=== PATIENT | female | born 2000 | race Caucasian/White ===

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

== ENCOUNTER 2024-08-10 22:09 | Observation (INO) ==
[2024-08-10 22:44] VITALS: RESP 18
[2024-08-10] MEDS: LACTATED RINGER'S 1,000 ML IV ONE (23:19)
[2024-08-11] MEDS: LACTATED RINGER'S 1,000 ML IV SCH (00:19)
[2024-08-11] MEDS ORDERED: MoRPHine SULFATE 2 MG/ML CARP IV STA (02:17)
[2024-08-11] MEDS ORDERED: ONDANSETRON INJ 2 MG/ML 2 ML VIAL IV PRN (02:22)
[2024-08-11 07:01] VITALS: BP 113/60; PULSE 68
[2024-08-11 07:12] VITALS: TEMP 98.1
--- NOTE | 2024-08-11 07:13 | History & Physical Report ---
Date of Service August 11, 2024 Assessment & Plan (1) contractions: Plan: 36+ weeks with known breech presentation she presented last night with contractions that were regular every 4 to 6 minutes apart she described these as 7 out of 10 although she did appear comfortable per nursing. Her cervix was 1 cm and thick because of her distance from the hospital over 45 minutes and contractions with breech she was rechecked in 2 hours stated she was more uncomfortable however cervix was unchanged. Because of her distance she was kept overnight again checked in the morning after fluid hydration through IV and oral her contractions have essentially s topped cervix is long and thick perhaps fingertip quite posterior reassurance is provided I will discharge her home Total [id number] time 55 minutes Admission and Anticipated Discharge Date Admission Date: August 11, 2024 History of Present Illness Primary Care Provider: NO PCP Visit FLYNN Calculator Estimated Delivery Date Method Current WG Current Estimate 09/03/24 Ultrasound #1 36w 2d LMP: 10/14/23 : 2 Full term: 0 Premature: 0 Total Number of Induced Abortions: 0 Total Number of Spontaneous Abortions: 1 Ectopics: 0 Multiple births: 0 Number of Living Children: 0 and Delivery Plans Unable to view heat on f/u Anatomy * [place] [facility] [place] Allergies Allergy/AdvReac Type Severity Reaction Status Date / Time doxycycline Allergy Intermediate Vomiting Verified 08/08/24 11:10 Home Medications Medication Instructions Recorded Confirmed Type buspirone 30 mg tablet 30 mg PO DAILY 05/05/24 08/11/24 History [id number]-[id number]-FA 1 tab PO DAILY 05/05/24 08/11/24 History [ Plus] sertraline 50 mg tablet (Zoloft) 50 mg PO DAILY 05/05/24 08/11/24 History hydrocortisone 2.5 % topical cream 1 applic MS DAILY PRN hemorrhoids 07/25/24 08/11/24 Rx with perineal applicator #30 grams (Anusol-HC) Patient History Medical History Chlamydia Raynauds disease Anxiety Urinary symptom or sign Nexplanon insertion Amenorrhea Abnormal uterine bleeding (AUB) No pertinent past medical history Surgical History H/O excision of ganglion cyst History of cosmetic surgery History of facial surgery S/P wisdom tooth extraction Family History (Updated 05/05/24 @ 13:59 by Mary Kay Buchanan RN) Grandmother (Maternal) Arthritis Sister Depression Father Diabetes Mother Gestational diabetes Aunt Graves disease Grandmother (Paternal) Huntingtons chorea Grandmother Hypertension Denies family history of Ovarian cancer Prostate cancer Breast cancer Colorectal cancer Uterine cancer Social History Smoking Status: Never smoker Do You Dip or Chew Tobacco: No; Hx Alcohol Use: No Hx Substance Use: No Preferred Language: Khmer marital status: marital status details: Musa Decker (24) [phone] Current Living Situation: Spouse Current Living Situation Comment: Lives with , 2 dogs current occupational status: employed 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 How many Children do You have: 0 Physical Exam Constitutional: WD/WN, vitals as above well developed and well nourished Respiratory: normal respiratory effort, lungs clear to auscultation normal respiratory effort Cardiovascular: RRR, no murmur, no edema Gastrointestinal (Abdomen): normal bowel sounds, soft, nontender, no hepatosplenomegaly Results & Data Vital Signs (Past 12 Hours) Vital Signs Temp Pulse Resp BP 08/11/24 07:00 68 113/60 08/11/24 02:38 98.4 F 59 L 18 106/55 L 08/10/24 22:33 98.6 F 18 08/10/24 22:32 87 129/81 Coding Level of Care Code 52227 INT INP/OBS CARE 2/55MIN Diagnoses contractions O47.00
--- NOTE | 2024-08-13 16:09 | Discharge Summary ---
Date of Service August 13, 2024 Admission HPI Per Admitting Provider Visit FLYNN Calculator Estimated Delivery Date Method Current WG Current Estimate 09/03/24 Ultrasound #1 36w 2d LMP: 10/14/23 : 2 Full term: 0 Premature: 0 Total Number of Induced Abortions: 0 Total Number of Spontaneous Abortions: 1 Ectopics: 0 Multiple births: 0 Number of Living Children: 0 and Delivery Plans Unable to view heat on f/u Anatomy * Echo (06/20/24 @ [facility] [place])----normal Admission Exam (Per Admitting) Constitutional WD/WN, vitals as above well developed and well nourished Respiratory normal respiratory effort, lungs clear to auscultation normal respiratory effort Cardiovascular RRR, no murmur, no edema Gastrointestinal (Abdomen) normal bowel sounds, soft, nontender, no hepatosplenomegaly Hospital Course (1) contractions: 36+ weeks with known breech presentation she presented last night with contractions that were regular every 4 to 6 minutes apart she described these as 7 out of 10 although she did appear comfortable per nursing. Her cervix was 1 cm and thick because of her distance from the hospital over 45 minutes and contractions with breech she was rechecked in 2 hours stated she was more uncomfortable however cervix was unchanged. Because of her distance she was kept overnight again checked in the morning after fluid hydration through IV and oral her contractions have essentially stopped cervix is long and thick perhaps fingertip quite posterior reassurance is provided I will discharge her home Total [id number] time 55 minutes Coding Level of Care Code None Diagnoses contractions O47.00
== END 2024-08-11 07:47 | disposition home or self-care (01) ==
LOC: OPB 22:09 → 4S1 22:09

== ENCOUNTER 2024-08-19 02:35 | Inpatient (IN) ==
[2024-08-19] MEDS: LACTATED RINGER'S 1,000 ML IV SCH ×2 (03:25→14:06)
[2024-08-19 03:42] LABS: Hematocrit (blood only) 34.8 % (37.0-47.0); Hemoglobin 11.7 g/dl (12.0-16.0); Mean Corpuscular Hemoglobin 27.9 pg (25.0-34.0); Mean Corpuscular Hgb Conc 33.6 g/dL (32.0-36.0); Mean Corpuscular Volume 82.9 fL (80.0-100.0); Mean Platelet Volume 12.4 fL (9.4-12.4); Platelet Count 178 K/uL (130-400); RDW Coefficient of Variation 13.2 % (11.5-14.5); White Blood Count 8.77 K/ul (4.8-10.8)
[2024-08-19] MEDS ORDERED: Nursing to Pharmacy Communication SCH (03:45)
[2024-08-19] MEDS: ACETAMINOPHEN 500 MG TAB PO STA (03:50)
[2024-08-19] MEDS: CITRIC ACID/SODIUM CITRATE 15 ML UDC PO SCH ×2 (03:52→03:54)
[2024-08-19] MEDS: ceFAZolin 3000MG 3,000 MG/72.5 ML BAG IV SCH (03:55)
--- NOTE | 2024-08-19 04:01 | History & Physical Report ---
Date of Service August 19, 2024 Assessment & Plan (1) Breech presentation: Plan: Intrauterine at 37-6/7 weeks with grossly ruptured membranes and breech presentation. We will proceed with primary low-transverse section. Procedure and its risks were reviewed with the patient and her and all her questions have been answered to their satisfaction. Please see the orders for further direction. Admission and Anticipated Discharge Date Admission Date: August 19, 2024 History of Present Illness Primary Care Provider: NO PCP Patient is a 23-year-old 1 P0 female EDC 09/03/2024 who presents at 37- 6/7 weeks with grossly ruptured membranes for clear fluid. She has had some contractions but they are still mild. is complicated by persistent breech presentation and anxiety. GBS positive. Allergies Allergy/AdvReac Type Severity Reaction Status Date / Time doxycycline Allergy Intermediate Vomiting Verified 08/14/24 11:33 Home Medications Medication Instructions Recorded Confirmed Type buspirone 30 mg tablet 30 mg PO BID 05/05/24 08/19/24 History sertraline 50 mg tablet (Zoloft) 50 mg PO QAM 05/05/24 08/19/24 History vits no.124-ferrous fum 1 tab PO DAILY 08/18/24 08/19/24 History 27 mg iron-folic acid 800 mcg tablet ( Vitamin) Patient History Medical History Anxiety Hx of gastroesophageal reflux (GERD) mainly with Raynauds disease b/l feet Surgical History H/O excision of ganglion cyst left wrist History of cosmetic surgery 2002 and 2011 History of facial surgery facial reconstruction and scar revision 2010 Nausea after anesthesia after facial surgery, age 11 S/P wisdom tooth extraction 2016 Family History Grandmother (Maternal) Arthritis Sister Depression Father Diabetes Mother Gestational diabetes Aunt Graves disease Grandmother (Paternal) Huntingtons chorea Grandmother Hypertension Denies family history of Ovarian cancer Prostate cancer Breast cancer Colorectal cancer Uterine cancer Social History (Updated 08/18/24 @ 14:50 by Karely Soler RN) Smoking Status: Never smoker Second Hand Exposure: No; Hx Alcohol Use: No Hx Substance Use: No Preferred Language: Ugandan Communication Ability: Effective Electrical Continuity Inspector Required: No Beliefs That Will Affect Care: None marital status: marital status details: Musa Decker (24) [phone] Current Living Situation: Family Current Living Situation Comment: Lives at home with and 2 dogs. current occupational status: employed current occupation: Home Health Nurse How many Children do You have: 0 Feels Safe at Home: Yes Safety Concerns: Feels Safe At This Time Assistive Devices: None Review of Systems All systems reviewed & are unremarkable except as noted in HPI & below Physical Exam Constitutional: WD/WN, vitals as above Psychiatric: A+Ox3, euthymic affect Genitourinary: OB Exam Abdomen: + breech (confirmed by ultrasound), + estimated weight (7-8 pounds) and + irregular contractions Manual OB Exam: + amniotic fluid (grossly ruptured) clear and nitrazine positive OB Exam Monitor Tracing: + external FHT monitor used, + external uterine monitor used, + category I and + normal FHT variability Results & Data Vital Signs (Past 12 Hours) Vital Signs Temp Pulse Resp BP 08/19/24 03:04 86 135/87 08/19/24 02:48 97.7 F 18 Coding Level of Care Code 66235 INT INP/OBS CARE 1/40MIN Diagnoses Breech presentation, single or unspecified fetus O32.1XX0 Fetus number: single or unspecified fetus (1) Breech presentation Fetus number: single or unspecified fetus Qualified Code(s): O32.1XX0 - Maternal care for breech presentation, not applicable or unspecified
[2024-08-19] MEDS: AZITHROMYCIN 500 MG/255 ML BAG IV SCH (04:16)
[2024-08-19] MEDS ORDERED: ONDANSETRON INJ 2 MG/ML 2 ML VIAL ONE (04:26)
[2024-08-19] MEDS ORDERED: PHENYLEPHRINE HCL 10 MG/ML VIAL ONE (04:26)
[2024-08-19] MEDS ORDERED: MoRPHine SULFATE PF 1 MG/ML 10 ML AMP/VIAL ONE (04:26)
[2024-08-19] MEDS ORDERED: OXYTOCIN 10 UNITS/ML VIAL ONE (04:44)
[2024-08-19] MEDS ORDERED: PHENYLEPHRINE 100MCG/ML 5ML SYR ONE (05:04)
[2024-08-19] MEDS ORDERED: LIDOCAINE 2% MPF LOCAL 5 ML VIAL ONE (05:04)
--- NOTE | 2024-08-19 05:42 | Post Operative Brief Note ---
Immediate Post Op Note Date of Surgery August 19, 2024 Pre & Post Diagnosis Operation Date: 08/19/24 03:10 Pre-Op Diagnosis: breech presentation; SROM Post-Op Diagnosis: same as pre-op I identified the patient and participated in the time-out.: Yes Procedure Operation Date: 08/19/24 03:10 Actual Procedures p Section in LD for the of a live male child @ 0457 - Xochitl Guerrero MD, FACOG Surgeon Xochitl Guerrero MD, FACOG Sand[employer] Pedd[employer] Kelin Anand RN Quantitative Blood Loss (QBL) 380 Findings Consistent with Post-Op Diagnosis gravid uterus consistent with term - bilateral ovaries and tubes are normal Specimens Specimen Description: 1. Placenta-Hold 2. Cord Blood Drains Brooks Catheter (managed by anesthesia during surgery ) Anesthesia Type Spinal Complications none Disposition Accompanied Patient To Recovery: Yes Disposition: L&D
[2024-08-19] MEDS ORDERED: CALCIUM CARBONATE 500 MG CHEWABLE TAB PO PRN (05:50)
[2024-08-19] MEDS ORDERED: diphenhydrAMINE Capsule 25 MG CAP PO PRN ×2 (05:50→23:53)
[2024-08-19] MEDS ORDERED: BENZOCAINE 20% SPRY 85 APPLN/85 GM CAN EXT PRN (05:50)
[2024-08-19] MEDS ORDERED: diphenhydrAMINE 50 MG/ML VIAL IV PRN ×3 (05:50→23:53)
[2024-08-19] MEDS ORDERED: SENNA 8.6 MG TAB PO PRN (05:50)
[2024-08-19] MEDS ORDERED: MAGNESIUM HYDROXIDE SUSP 30 ML UDC PO PRN (05:50)
[2024-08-19] MEDS ORDERED: ONDANSETRON INJ 2 MG/ML 2 ML VIAL IV PRN ×2 (05:50→05:53)
[2024-08-19] MEDS ORDERED: PROMETHAZINE 12.5 MG/50.5 ML BAG IV PRN (05:50)
[2024-08-19] MEDS ORDERED: HYDROmorphone INJ 0.5 MG/0.5 ML SYR IV PRN ×4 (05:50→23:53)
[2024-08-19] MEDS ORDERED: HYDROCORTISONE ACETATE 25 MG SUPP PR PRN (05:50)
[2024-08-19] MEDS ORDERED: oxyCODONE HCL IR 5 MG TAB (IMMEDIATE RELEASE) PO PRN ×5 (05:50→23:53)
[2024-08-19] MEDS: OXYTOCIN 20 UNITS/LR 1,002 ML IV SCH (05:51)
[2024-08-19] MEDS ORDERED: PROMETHAZINE 6.25 MG/50.25 ML BAG IV PRN ×2 (05:53→23:53)
[2024-08-19] MEDS ORDERED: NALOXONE HCL 0.4 MG/1 ML VIAL/CARP IV PRN (05:53)
[2024-08-19] MEDS ORDERED: MEPERIDINE HCL 25 MG/ML CARP/VIAL IV PRN (05:53)
[2024-08-19] MEDS ORDERED: NALBUPHINE HCL INJ 10 MG/ML AMP IV PRN (05:53)
[2024-08-19] MEDS ORDERED: MoRPHine SULFATE PF 1 MG/ML 10 ML AMP/VIAL INT SPINAL ONE (05:53)
[2024-08-19] MEDS ORDERED: MoRPHine SULFATE 2 MG/ML CARP IV PRN ×2 (05:53→23:53)
[2024-08-19] MEDS ORDERED: NALOXONE HCL 1 MG in SODIUM CHLORIDE 0.9% 1,000 ML IV PRN (05:53)
[2024-08-19] MEDS ORDERED: ePHEDrine sulfate 50 MG/ML AMP IV PRN (05:53)
--- NOTE | 2024-08-19 05:58 | Operative Report ---
Post Operative Report Pre & Post Diagnosis Operation Date: 08/19/24 03:10 Pre-Op Diagnosis: breech presentation; SROM Post-Op Diagnosis: same as pre-op I identified the patient and participated in the time-out.: Yes Procedure Operation Date: 08/19/24 03:10 Actual Procedures p Section in LD for the of a live male child @ 0457 - Xochitl Guerrero MD, FACOG Surgeon Xochitl Guerrero MD, FACOG [employer] Uzma Anand RN Quantitative Blood Loss (QBL) 380 Findings Consistent with Post-Op Diagnosis Gravid uterus consistent with term in size bilateral ovaries and fallopian tubes grossly. normal in the double footling breech presentation. Specimens Placenta to hold Drains Brooks catheter to straight drainage clear urine at the end of the case. Anesthesia Type Spinal Complications none Disposition Accompanied Patient To Recovery: Yes Disposition: L&D Indications Intrauterine at 37-6/7 weeks with spontaneous rupture membranes for clear fluid and breech presentation. Description of Procedure At the patient received adequate subarachnoid block she was prepped and draped in usual sterile fashion. A low transverse skin incision was made with a scalpel carried to the fascia with the same scalpel. The fascia incision was then extended with Moreno scissors. The edges of the fascia were then grasped with Niles clamps and the underlying rectus muscle bluntly sharply dissected off of the overlying fascia. The rectus muscle was then divided on the midline and the underlying peritoneum elevated and entered sharply. The bladder was then taken down with Metzenbaum scissors and placed behind the bladder blade. Low transverse skin incision was made in the uterus with the scalpel the incision was then extended transversely by stretching the incision in a cephalad and caudad direction. The was delivered from the double footling breech presentation with moderate fundal pressure the shoulders were then delivered in the head followed shortly after. The was vigorous crying moving all 4 limbs upon arrival at the baby bed. Dr. Francis and the nursery team were in attendance at the delivery. After cord blood was obtained, the placenta was expressed intact with a three-vessel cord. Some retained membranes were removed from the lower uterine segment. the uterine cavity was explored and found to be free of any other retained tissue or membranes. The uterus was then closed in 2 layers in a running locking imbricating fashion with 0 Monocryl. Hemostasis noted to be excellent on the uterine incision after examining the ovaries and tubes, the posterior cul-de-sac was suctioned for small amount of blood. The uterus vision was examined once more and continue to have excellent hemostasis. Uterus was placed back inside the abdominal cavity the gutters were explored and found to be free of any clot or fluid. Some bleeding along the bladder flap was secured with the Bovie. Bleeding site on the left rectus muscle was secured with a suture of 0 Monocryl. The fascia was then closed in a running fashion with 0 Vicryl after irrigating the subcutaneous layer Lluvia's fascia was reapproximated in a running fashion with 3-0 plain catgut. Skin edges were approximated using a subcuticular stitch of 4-0 Vicryl. Urine was clear at the end of the case mother and were doing well upon arrival back in labor and delivery. I attest to the content of the Intraoperative Record and any orders documented therein. Any exceptions are noted below.
[2024-08-19] MEDS ORDERED: NO NARCOTICS OR SEDATIVES SCH (06:00)
[2024-08-19] MEDS ORDERED: ceFAZolin 3000MG 3,000 MG/72.5 ML BAG IV SCH (06:00)
[2024-08-19] MEDS ORDERED: ACETAMINOPHEN 500 MG TAB PO SCH (06:00)
[2024-08-19] MEDS ORDERED: LACTATED RINGER'S 1,000 ML IV SCH (06:00)
[2024-08-19] MEDS ORDERED: DC INTRASPINAL MORPHINE SCH (06:00)
[2024-08-19] MEDS ORDERED: AZITHROMYCIN 500 MG/255 ML BAG IV SCH (06:00)
--- NOTE | 2024-08-19 06:08 | Anesthesiology Progress Note ---
Date of Service August 19, 2024 Anesthesia Post Procedure Vital Signs Vital Signs: Temp Pulse Resp BP Pulse Ox 08/19/24 06:05 59 L 98 08/19/24 06:00 62 99 08/19/24 05:57 62 119/57 L 08/19/24 05:55 64 99 08/19/24 05:49 63 98 08/19/24 05:48 63 109/53 L 08/19/24 05:46 63 155/133 H 08/19/24 03:04 86 135/87 08/19/24 02:48 36.5 C 18 Transfer of Care Handoff Completed per policy Notes Mental Status: alert / awake / arousable Nausea / Vomiting: adequately controlled Pain: adequately controlled Airway Patency, RR, SpO2: stable & adequate BP & HR: stable & adequate Hydration State: stable & adequate Neuraxial Anesthesia: was administered and sensory block is resolving Anesthetic Complications: no major complications apparent and Pt Satisfied with anesthetic care
[2024-08-19] MEDS: KETOROLAC 30 MG/ML VIAL IV SCH (06:18)
[2024-08-19] MEDS: DIPHTHER/TETAN/PERTUS Vaccine (Tdap, Adol/Adult) 0.5mL IM ONE (07:10)
[2024-08-19] MEDS: busPIRone 15 MG TAB PO SCH (08:03)
[2024-08-19] MEDS: PRENATAL VITAMIN 1 TAB PO SCH (08:03)
[2024-08-19] MEDS: SIMETHICONE 80 MG CHEW PO SCH (08:03)
[2024-08-19] MEDS: DOCUSATE SODIUM 100 MG CAP PO SCH (08:03)
[2024-08-19] MEDS: FERROUS SULFATE 325 MG TAB PO SCH (08:03)
[2024-08-19] MEDS: SERTRALINE HCL 50 MG TABLET PO SCH (08:04)
[2024-08-19] MEDS: HYDROmorphone INJ 0.5 MG/0.5 ML SYR IV PRN (08:05)
[2024-08-19] MEDS: diphenhydrAMINE 50 MG/ML VIAL IV PRN (08:27)
[2024-08-19] MEDS: ACETAMINOPHEN 325 MG TAB PO SCH (12:39)
[2024-08-19] MEDS: NALOXONE HCL 0.08 MG in SYRINGE 1.8 ML IV PRN (20:47)
[2024-08-20] MEDS: IBUPROFEN 600 MG TAB PO SCH (05:33)
[2024-08-20] MEDS ORDERED: KETOROLAC 30 MG/ML VIAL IV PRN (05:50)
--- NOTE | 2024-08-20 07:31 | Obstetrical Progress Note ---
Date of Service <Anat Diaz MD - Last Filed: 08/20/24 08:39> August 20, 2024 Assessment & Plan <Anat Daiz MD - Last Filed: 08/20/24 08:39> (1) care and examination: (2) Carrier of group B Streptococcus: (3) Breech presentation: Fetus number: single or unspecified fetus Qualified Code(s): O 32.1XX0 - Maternal care for breech presentation, not applicable or unspecified Plan POD1 s/p pLTCS at 37+ wga d/t breech presentation Rh+, gbs pos s/p pen G, ri, vitals & H/H wnl Continue routine care, OOB and ambulation, diet as tolerated Work on bowel and bladder function, pain control <Ranjeet Rivera MD - Last Filed: 08/21/24 15:56> (1) care and examination: (2) Carrier of group B Streptococcus: (3) Breech presentation: Subjective <Anat Diaz MD - Last Filed: 08/20/24 08:39> Patient is a 23yo who is POD#1 following delivery at 37 6/7 weeks. Abd pain/cramping is minimal and well managed on analgesics, but she reports R shoulder pain that shoots down her arm. Describes it as moderate intensity, constant, makes it hard for her to lie down, not worsened or received by any movement Has not yet voided Tolerating meals Ambulating normally +passing gas Having appropriate lochia Planning to breastfeed. Constitutional: no fever, no chills or no sweats Respiratory: no dyspnea Cardiovascular: no chest pain, no palpitations or no calf pain Breast: no breast pain Gastrointestinal: no nausea or no vomiting Genitourinary (female): no dysuria Neurologic: no headache(s) no changes in vision, no headaches Physical Exam <Anat Diaz MD - Last Filed: 08/20/24 08:39> General: Alert, oriented. No acute distress. Cardiac: Regular rate and rhythm, no murmurs, rubs, or gallops. Respiratory: Clear to auscultation bilaterally. No increased work of breathing. Symmetrical chest rise. No respiratory distress. Abdomen: Soft, nontender, nondistended. Bowel sounds present. Uterus: Uterine fundus firm, nontender, palpable 2 cm below the umbilicus. Surgical scar clean, dry, healing well. Lower extremities: No lower extremity edema or swelling. No deep calf pain. Results & Data <Anat Diaz MD - Last Filed: 08/20/24 08:39> Vital Signs (Past 12 Hours) Vital Signs Temp Pulse Resp BP Pulse Ox O2 Del Method 08/20/24 04:20 36.8 C 82 18 114/78 97 Room Air 08/20/24 00:00 36.8 C 88 20 126/73 97 Room Air 08/19/24 21:30 18 96 08/19/24 20:30 18 97 08/19/24 19:40 18 96 08/19/24 19:40 36.7 C 78 18 120/77 96 Room Air Laboratory Results 08/20/24 07:19 Supervising Physician <Ranjeet Rivera MD - Last Filed: 08/21/24 15:56> Co-Signing Physician Notes Patient seen and agree with the above findings and plan. Day 1 status post primary . Overall doing well. Has been straight cathed x 2 for urinary retention. Discussed likely Brooks if unable to void. Resident Activity Tracking <Anat Diaz MD - Last Filed: 08/20/24 08:39> Resident Involvement: Resident Care Provided Care Provided: Adult Hospital Medicine and OB Delivery
[2024-08-20 07:46] LABS: Basophils # (auto) 0.03 K/uL (0.00-0.20); Basophils % (auto) 0.4 %; Eosinophils # (auto) 0.06 K/uL (0.00-0.50); Eosinophils % (auto) 0.7 %; Hematocrit (blood only) 29.3 % (37.0-47.0); Hemoglobin 9.6 g/dl (12.0-16.0); Immature Granulocytes # (auto) 0.03 K/uL (0.01-0.20); Immature Granulocytes % (auto) 0.4 %; Lymphocytes % (auto) 17.4 %; Mean Corpuscular Hemoglobin 27.4 pg (25.0-34.0); Mean Corpuscular Hgb Conc 32.8 g/dL (32.0-36.0); Mean Corpuscular Volume 83.5 fL (80.0-100.0); Mean Platelet Volume 12.6 fL (9.4-12.4); Monocytes # (auto) 0.64 K/uL (0.11-0.59); Neutrophils # (auto) 5.88 K/uL (1.40-6.50); Neutrophils % (auto) 73.1 %; Platelet Count 144 K/uL (130-400); RDW Coefficient of Variation 13.3 % (11.5-14.5); RDW Standard Deviation 39.1 fL (36.4-46.3); Red Blood Count 3.51 M/uL (4.20-5.40); White Blood Count 8.04 K/ul (4.8-10.8)
[2024-08-20 21:05] VITALS: O2SAT 98
[2024-08-20] MEDS: bisacodyL 5 MG TABEC PO SCH (21:51)
[2024-08-21] MEDS ORDERED: bisacodyL 10 MG SUPP PR PRN (05:50)
[2024-08-21 06:32] LABS: Hematocrit (blood only) 27.3 % (37.0-47.0)
--- NOTE | 2024-08-21 06:37 | Obstetrical Progress Note ---
Date of Service <Anat Diaz MD - Last Filed: 08/21/24 07:10> August 21, 2024 Assessment & Plan <Anat Diaz MD - Last Filed: 08/21/24 07:10> (1) care and examination: (2) Carrier of group B Streptococcus: (3) Breech presentation: Fetus number: single or unspecified fetus Qualified Code(s): O 32.1XX0 - Maternal care for breech presentation, not applicable or unspecified Plan POD2 s/p pLTCS at 37+ wga d/t breech presentation Rh+, gbs pos s/p pen G, ri, vitals & H/H wnl Continue routine care, OOB and ambulation, diet as tolerated Work on bowel and bladder function, pain control Plan for DC: <Osiris Rincon MD - Last Filed: 08/21/24 07:49> (1) care and examination: (2) Carrier of group B Streptococcus: (3) Breech presentation: Subjective <Anat Diaz MD - Last Filed: 08/21/24 07:10> Patient is a 23yo who is POD#2 following delivery at 37 6/7 weeks. R shoulder pain is improved. Abd pain/cramping is minimal and well managed w/ analgesics. Voiding w/o issue Tolerating meals Ambulating normally +passing gas Having appropriate lochia Planning to breastfeed. Constitutional: no fever, no chills or no sweats Respiratory: no dyspnea Cardiovascular: no chest pain, no palpitations or no calf pain Breast: no breast pain Gastrointestinal: no nausea or no vomiting Genitourinary (female): no dysuria Neurologic: no headache(s) no changes in vision, no headaches Physical Exam <Anat Diaz MD - Last Filed: 08/21/24 07:10> General: Alert, oriented. No acute distress. Cardiac: Regular rate and rhythm, no murmurs, rubs, or gallops. Respiratory: Clear to auscultation bilaterally. No increased work of breathing. Symmetrical chest rise. No respiratory distress. Abdomen: Soft, nontender, nondistended. Bowel sounds present. Uterus: Uterine fundus firm, nontender, palpable 2 cm below the umbilicus. Surgical scar clean, dry, healing well. Lower extremities: No lower extremity edema or swelling. No deep calf pain. Results & Data <Anat Diaz MD - Last Filed: 08/21/24 07:10> Vital Signs (Past 12 Hours) Vital Signs Temp Pulse Resp BP Pulse Ox O2 Del Method 08/20/24 23:20 36.8 C 85 18 131/85 08/20/24 20:08 36.7 C 76 18 135/80 98 Room Air Laboratory Results 08/21/24 06:06 Supervising Physician <Osiris Rincon MD - Last Filed: 08/21/24 07:49> Co-Signing Physician Notes Resident Physician Supervision Note: I interviewed and examined the patient. Discussed with Dr. Gomze and agree with findings and plan as documented in the note. Any exceptions or clarifications are listed here: [ ] Documented By: Osiris Rincon MD, FACOG
[2024-08-21] MEDS: IBUPROFEN 600 MG TAB PO PRN (07:55)
[2024-08-21 09:06] VITALS: BP 126/86; PULSE 78; RESP 14; TEMP 97.5
[2024-08-21] MEDS ORDERED: ACETAMINOPHEN 325 MG TAB PO PRN (11:50)
--- NOTE | 2024-08-22 15:59 | Discharge Summary ---
Date of Service August 22, 2024 Admission HPI Per Admitting Provider Patient is a 23-year-old 1 P0 female EDC 09/03/2024 who presents at 37- 6/7 weeks with grossly ruptured membranes for clear fluid. She has had some contractions but they are still mild. is complicated by persistent breech presentation and anxiety. GBS positive. Admission Exam (Per Admitting) Constitutional WD/WN, vitals as above Psychiatric A+Ox3, euthymic affect Genitourinary OB Exam Abdomen: + breech (confirmed by ultrasound), + estimated weight (7-8 pounds) and + irregular contractions Manual OB Exam: + amniotic fluid (grossly ruptured) + clear and + nitrazine positive OB Exam Monitor Tracing: + external FHT monitor used, + external uterine monitor used, + category I and + normal FHT variability Discharge Data Consultations 08/19/24 03:11 Consult Anesthesiology Stat Procedures Performed Operation Date: 08/19/24 03:10 Actual Procedures p Section in LD for the of a live male child @ 0457(Bilateral) - Xochitl Guerrero MD, FACOG Discharge Plan Discharge Items Patient Disposition: Home - Self-Care Reason For Visit: RUPTURE OF MEMBRANES Discharge Diagnosis: Activity: Per Instructions section Non-emergency contact: Primary Care Provider and [employer] Call non-emergency contact if: your pain is not controlled Follow-up/Referrals: PCP,BEATA [Primary Care Provider] - Diet: Regular OB Addtl Attending Provider Instructions: ACTIVITY RECOMMENDATIONS: * Gradual return to full activity over the next 2-3 weeks. * No lifting - nothing heavier than baby over the next 2-3 weeks. * Do not engage in vigorous exercise, sexual activity or sports until cleared by your physician. * Do not drive or operate any motorized equipment until cleared by your physician. * You may shower/bathe daily. MEDICATIONS: For discomfort or pain, you may use Acetaminophen (Tylenol), Ibuprofen (Advil), or Naproxen (Aleve) following the package directions. For constipation you may use Colace following the package directions. BREAST CARE: If you are not breast feeding: * Wear a supportive bra 24 hours a day for one to two weeks. * Avoid stimulating your breasts and nipples as much as possible during the first few weeks after delivery. * When taking a shower, have the warm water hit your back, not breasts. * When your breasts feel full, apply ice packs. Usually three to four times a day helps ease the discomfort. * Take a mild pain medication (Tylenol / Motrin) when you are uncomfortable. If breast feeding: * Use breast milk to lubricate nipples. Lansinoh cream may be used for sore nipples. You do not need to remove cream prior to breast feeding. If using a different brand of cream, check the label for directions regarding removal of cream prior to nursing. * Wear a supportive bra. * If having problems with breasts or breast feeding, call a consulta nt or your health care provider. SPECIAL CARE INSTRUCTIONS: When you are discharged from the hospital, it is important for you to follow the instructions listed below: * During the first week at home, you should be able to care for yourself and your baby. In addition, the usual light household activities are encouraged. * Limit your activities to the way you feel. Do not try to clean the house or move furniture. Be sensible. * If you actively engage in sports and have done so up until the time of your delivery, you may resume these activities as soon as you feel able. This may take up to one month or even longer. Use good judgment. * Continue to take your vitamins for at least six weeks after the of your baby. * Your diet need not be limited unless you were on a special diet before your delivery. Breast-feeding mothers need around 2500 calories per day and at least 64-80 ounces of fluid per day (8 to 10 glasses). * You should eat foods from the four major food groups. Crash diets or fad diets are to be avoided. Eating lean meats, fresh fruits and vegetables, low-fat dairy products, high fiber foods and a regular exercise program, will help you get back to your pre- weight without putting your health at risk. * Constipation is sometimes a problem after delivery. Take a mild laxative as needed. If breast feeding, Milk of Magnesia is acceptable to use. You may use a suppository or Fleets enema. * A daily shower or tub bath is suggested. Wash incision daily with warm soapy water and pat dry. It doesn't need to be covered unless drainage is present. * A bloody vaginal discharge will usually continue until around four weeks . A small amount of bleeding may continue for as long as six weeks. Vaginal discharge changes from the bright red bleeding after delivery to pink then brownish and finally yellowish-pink before becoming white and disappearing. * Bleeding may increase with activity. Your first period may come in 4-8 weeks. If you are breast feeding, your period may be delayed even longer. * [place] (sex) can begin whenever both you and your partner feel comfortable and do not have any form of genital infection. It is recommended that you wait at least six weeks for internal and external healing to occur. If you have questions, please talk to your health care practitioner. A condom should be used to prevent infection and . * Foreplay, gentle intercourse and lubrication is very important the first several times to prevent pain. A water-based lubricant such as K-Y jelly or Astroglide may be used. * If you have RH negative blood and your baby is RH positive, you will receive RHOGAM by injection prior to discharge. The nurse will give you a card to keep with you that has the date and place that you received RHOGAM after delivery. * During your care, you had a Rubella screen done to check for the presence of rubella antibodies in your blood. If your test was negative, you will receive a Rubella vaccine prior to discharge. This vaccine may cause a fever, soreness at the injection site and flu-like symptoms. If these symptoms persist, notify your health care practitioner. is not advised for one month after a Rubella vaccine. * Verbalizes understanding of car seat law as reviewed with patient nursing. * Car Seat hand-out given and reviewed with patient by nursing. * Shaken baby information reviewed with patient by nursing. Call you doctor if: * Heavy bleeding (saturating several pads an hour) or passing clots the size of your fist. * A fever >101 degrees F (38.3 degrees C) on two occasions four hours apart and/or chills. * Unusual pain in the pelvic or vaginal areas. * Call the doctor for any increased redness, drainage or swelling around the incision and any pain unrelieved by prescribed pain medication. * "Baby Blues" lasting longer than two weeks. If you have any questions or concerns, call your health care practitioner at . FOLLOW UP VISIT: * Please call the office at to schedule a 6 week examination. It is important you keep this appointment. It is important for you to make arrangements for either yearly or twice yearly check-ups thereafter. Pending Studies at Discharge: No Stand-Alone Forms: My [facility], Smoking Cessation Medications and DC Order Prescriptions: Continued sertraline [Zoloft] 50 mg tablet 50 mg PO QAM buspirone 30 mg tablet 30 mg PO BID Vitamin 27 mg iron- 800 mcg Tablet 1 tab PO DAILY Discharge Orders: Discharge Order (Routine); Ordered 08/21/24 Ordered By: Anat Lopez/Other Patient Handouts: Understanding Blues, Depression, DVT in Admission Data Admit Date/Time: 08/19/24 03:11 Attending Provider: Xochitl Guerrero Admit Provider: Xochitl Guerrero Primary Care Provider: PCP,NO Other Providers: Todd Kline Other Interventions: Discharge Summary Assessment (RN) Last Done: 08/21/24 10:48 Coding Level of Care Code 36481 IN/OBS DISCH 30 MIN/LESS
== END 2024-08-21 10:58 | disposition home or self-care (01) | DRG 788 ==
LOC: OPB 02:35 → 4S1 02:38 → 4E2 08:45
DX: Z37.0 Single live birth; O32.8XX0 Maternal care for other malpresentation of fetus, not applicable or unspecified; Z83.3 Family history of diabetes mellitus; O42.02 Full-term premature rupture of membranes, onset of labor within 24 hours of rupture; Z3A.37 37 weeks gestation of pregnancy; O99.824 Streptococcus B carrier state complicating childbirth